=== PATIENT | male | born 2000 | race Caucasian/White ===

== ENCOUNTER 2022-01-22 23:20 | Emergency (ER) | payer BC, SELFPAY ==
[2022-01-22 23:21] VITALS: BP 157/89; PULSE 130; RESP 16; TEMP 36.8; O2SAT 100; BMI 33.6
--- NOTE | 2022-01-22 23:46 | US_ITS ---
STUDY: TESTICULAR/SCROTAL ULTRASOUND EXAMINATION OF 2354 HOURS ON 01/22/2022 REASON FOR EXAM: 21-year-old male with pain superior to the right testicle of 3 days'' duration. TECHNIQUE: Ultrasound evaluation of the scrotum was performed with color Doppler and static chong-scale imaging. COMPARISON: None. FINDINGS: RIGHT TESTICLE Right testicle measures 4.7 cm length by 3.1 cm in transverse diameter by 2.4 seconds AP diameter. It has a homogeneous appearance without evidence of cystic or solid mass lesions. There is normal arterial and venous blood flow. There is no evidence for right testicular torsion. Left testicle measures 4.7 cm in length by 3.1 cm in transverse diameter by 2.4 cm in AP diameter. The left testicle is homogeneous in appearance. There is evidence of left testicular cystic or solid mass lesions. There is normal left testicular arterial and venous blood flow. There is no evidence of a left testicular torsion. There is a moderate right hydrocele with some debris and a mild left hydrocele.. There is no evidence of varicoceles. The right epididymal head measures 1.1 cm x 0.6 cm x 0.4 cm. The right epididymal head is normal. There is no evidence of right epididymitis. The left epididymal head measures 1.1 cm x 7 mm x 7 mm. The left epididymal head is normal. There is no evidence of a left epididymitis. There is no demonstration of a hernia. US/Testicular with Arterial Flow IMPRESSION: 1. Normal bilateral testicles without evidence of cystic or solid mass lesions or torsion. No evidence of an orchitis. 2. Normal epididymal heads bilaterally. No findings of an epididymitis. 3. Moderate right hydrocele (with debris) and a mild left hydrocele. 4. No evidence of varicoceles. 5. No demonstration of hernias. Electronically Signed: Dariel Nicholson MD at 0:34 EDT ,
--- NOTE | 2022-01-22 23:46 | EX.ED.GUMALE ---
HPI History of Present Illness Chief Complaint: Male Pain/Injury Informant: patient Narrative Narrative: 21-year-old male presented to the emergency room with pain above his right testicle. Symptoms have been present for 2 days. He denies dysuria vomiting flank pain or abdominal pain. No direct trauma noted. He states that it feels mildly uncomfortable with certain positions and movement. He states that he has not noticed any swelling or erythema. No drainage from the testicle. He has not noticed any masses. PFSH PFSH Allergy/AdvReac Type Severity Reaction Status Date / Time No Known Allergies Allergy Verified 01/22/22 23:22 Social History (Updated 01/22/22 @ 23:[address] Nghia Trinidad, DO) current gender identity: male Smoking Status: Never smoker substance use type: does not use ROS ROS ED Constitutional Constitutional ED: Denies chills or weight loss Eyes Eyes: Denies change in vision or diplopia ENT ENT ED: Denies ear pain, rhinorrhea or sore throat Cardiovascular Cardiovascular: Denies chest pain, orthopnea, palpitations or racing heartbeat Respiratory/Chest Respiratory/Chest: Denies cough, dyspnea or orthopnea Gastrointestinal Gastrointestinal: Denies abdominal pain, diarrhea, nausea or vomiting Genitourinary Genitourinary ED: Reports other Details: Right scrotal pain ; Denies dysuria, hematuria or urinary frequency Musculoskeletal Musculoskeletal: Denies arthralgias or myalgias Integumentary Denies abscess or rash Neurologic Neurologic: Denies headache(s) or weakness Psychiatric Psychiatric: Denies anxiety, depression, suicidal ideation or suicidal thoughts Endocrine Endocrinology: Denies polydipsia, polyphagia or polyuria Allergic/Immunologic Allergic/Immunologic ED: Denies mouth swelling, tongue swelling or urticaria EXAM Physical Exam Const Vital Signs: 01/22/22 23:21 Temperature 98.3 F Temperature Source Temporal Pulse Rate 130 H Respiratory Rate 16 Blood Pressure 157/89 H Blood Pressure Mean 111 Pulse Ox 100 Oxygen Delivery Method Room Air Positive well nourished and well developed General Appearance ED: well developed HEENT Reports normocephalic, head/scalp atraumatic and moist mucous membranes Eyes PERRL and EOMs intact bilaterally Neck no lymphadenopathy, supple and no JVD Resp normal respiratory effort and clear to auscultation bilaterally Cardio regular rate, regular rhythm and no murmurs GI normal to inspection, nondistended, normoactive bowel sounds and non-tender Palpation: soft Narrative: Circumcised male. There is no hernia palpated. The testicle itself has a normal lay no swelling. No drainage from the meatus. Back/Spine no CVA tenderness and normal ROM Extremity normal to inspection General Extremety ED: Negative for edema General Extremity: Negative for edema Neuro oriented x3 and CN's II-XII intact bilaterally Sensorium / Orientation: alert Motor Exam: strength 5/5 throughout Psych mental status grossly normal Mood & Affect: Negative for depressed or tearful Skin no rashes or lesions noted and no wounds MDM MDM MDM Narrative Medical decision making narrative: Urinalysis is normal. Testicular ultrasound does not show any acute findings other than a moderate right hydrocele. Difficult to say if this is because of the patient's pain. I do not see anything emergent to explain his symptoms. Would recommend ice and anti-inflammatories. Return if worsening or concerns Lab Data Attestation: I reviewed the patient's lab results. Labs: Laboratory Results - last 24 hr 01/23/22 00:16 Urine Color Yellow Urine Clarity Clear Urine pH 6.5 Ur Specific [place] 1.010 Urine Protein Negative Urine Glucose (UA) Normal Urine Ketones Negative Urine Occult Blood Negative Urine Nitrite Negative Urine Bilirubin Negative Urine Urobilinogen Normal Ur Leukocyte Esterase Negative Urine RBC 0 SEEN Urine WBC 0 SEEN Ur Squamous Epith Cells 0 SEEN Urine Bacteria RARE Urine Mucus 0 SEEN Radiography Diagnostic Testing: Clinical Impression(s) from Imaging Studies Testicular Ultrasound 01/22/22 23:46 IMPRESSION: 1. Normal bilateral testicles without evidence of cystic or solid mass lesions or torsion. No evidence of an orchitis. 2. Normal epididymal heads bilaterally. No findings of an epididymitis. 3. Moderate right hydrocele (with debris) and a mild left hydrocele. 4. No evidence of varicoceles. 5. No demonstration of hernias. Electronically Signed: Dariel Nicholson MD at 0:34 EDT , Discharge Plan Triage Chief Complaint: Male Pain/Injury ED Provider: Nghia Trinidad Dx/Rx/DC Orders Clinical Impression: Acute pain in scrotum Instructions: ED Pain, Acute, Uncertain Cause Primary Care Provider: Care Physician,No Primary Referrals: Gildardo Choi MD [STAFF PHYSICIAN] - As Needed (for primary care ) NOT,DEFINED [NON-STAFF] - Disposition Disposition: Home, Self Care
[2022-01-23 00:27] LABS: Color, Urine Yellow (Yellow); Glucose, Dipstick Normal (Normal); Ketone-Dipstick Negative (Negative); Leukocyte Esterase-Dipstick Negative /ul (Negative); Nitrite-Dipstick Negative (Negative); Occult Blood-Urine Negative /ul (Negative); Protein-Dipstick Negative (Negative); Urine Bilirubin Dipstick Negative (Negative); Urine Clarity Clear (Clear); Urine Urobilinogen Normal (Normal); Urine pH 6.5 (5.0 - 8.0)
[2022-01-23 00:28] LABS: Mucous, Urine 0 SEEN /hpf (<or=2+); Red Blood Cells-Urine 0 SEEN /hpf (0-5); Squamous Epithelial Cells - UA 0 SEEN /hpf (0-5); White Blood Cells 0 SEEN /hpf (0-5)
[2022-01-23 00:39] LABS: Bacteria RARE /hpf (None Seen)
== END 2022-01-23 00:50 | disposition home or self-care (01) ==
PROVIDERS: Emergency Provider Emergency Medicine; Visit Provider Emergency Medicine
DX: N50.82 Scrotal pain (principal); N43.3 Hydrocele, unspecified
CPT/HCPCS: 76870; 81001; 93976; 99282

== ENCOUNTER 2023-01-07 16:59 | Emergency (ER) | payer BC, SELFPAY ==
[2023-01-07 17:01] VITALS: BP 145/90; PULSE 137; RESP 20; TEMP 36.1; O2SAT 98; BMI 35.9
--- NOTE | 2023-01-07 17:08 | EKG12_ITS ---
Test Reason : CP Blood Pressure : / mmHG Vent. Rate : 139 BPM Atrial Rate : 139 BPM P-R Int : 134 ms QRS Dur : 096 ms QT Int : 278 ms P-R-T Axes : 048 034 030 degrees QTc Int : 423 ms Sinus tachycardia Otherwise normal ECG Confirmed by MATHEW DURAN, HOLLIE ([id number]), index editor CANDIE AVENDANO ([id number]) on 01/09/2023 10:14:58 A M Referred By: Confirmed By:MICHELE CARMONA MD
--- NOTE | 2023-01-07 17:20 | ED.VIS.CHEST ---
HPI History of Present Illness Chief Complaint: Chest Pain Detail of Chief Complaint: Chest pain Informant: patient and parent Narrative Narrative: Patient presents with chest pain that started around 10:30 AM when he woke up this morning. States he had some mild discomfort in his left chest that was worse with breathing. Patient then got up and felt lightheaded and nauseated. He had discomfort throughout the day. Also noticed intermittently some discomfort in his arm and that made him think that he might be having a heart attack. Then patient started freaking out and presents for evaluation. Patient has no history of PE or DVT. No significant family history of heart disease. Denies recent illness of cough. He has had a slight sore throat that started last week. [facility] Medical History (Updated 01/07/23 @ 18:[address] Esteban Cardenas DO) Anxiety Home Medications NK 01/07/23 [History Last Taken Unknown] Allergy/AdvReac Type Severity Reaction Status Date / Time No Known Allergies Allergy Verified 01/07/23 17:01 Social History (Updated 01/22/22 @ 23:[address] Nghia Trinidad DO) Smoking Status: Never smoker substance use type: does not use ROS ROS ED Review of Systems ROS Unobtainable: other Constitutional Constitutional ED: Reports lethargy; Denies chills, fever(s), sweats or weight loss Eyes Eyes: Denies blurry vision, change in vision or diplopia ENT ENT ED: Denies rhinorrhea or sore throat Cardiovascular Cardiovascular: Reports chest pain and racing heartbeat; Denies orthopnea Respiratory/Chest Respiratory/Chest: Reports dyspnea; Denies cough, dyspnea on exertion, orthopnea or sputum Gastrointestinal Gastrointestinal: Denies abdominal pain, diarrhea, nausea or vomiting Genitourinary Genitourinary ED: Denies dysuria, hematuria or urinary frequency Musculoskeletal Musculoskeletal: Denies arthralgias, back pain, myalgias or neck pain Integumentary Denies abscess, Abrasions or rash Neurologic Neurologic: Denies headache(s) or weakness Psychiatric Psychiatric: Denies anxiety, depression or suicidal thoughts Endocrine Endocrinology: Denies polydipsia, polyphagia or polyuria Hematologic/Lymphatic Hematologic/Lymphatic: Denies easy bleeding, easy bruising or lymphadenopathy Allergic/Immunologic Allergic/Immunologic ED: Denies mouth swelling, tongue swelling or urticaria EXAM Physical Exam Const Vital Signs: 01/07/23 17:01 01/07/23 17:12 Temperature 97 F L Temperature Source Temporal Pulse Rate 137 H Respiratory Rate 20 H Respiratory Effort Short of Breath Blood Pressure 145/90 H Blood Pressure Mean 108 Pulse Ox 98 Oxygen Delivery Method Room Air Positive well nourished and well developed General Appearance ED: well developed and NAD HEENT Reports TM's clear and moist mucous membranes normocephalic and atraumatic; Negative for trauma or tenderness Tympanic Membrane ED: Yes TM's clear Eyes PERRL and EOMs intact bilaterally General Eye ED: Negative for pale conjunctiva or scleral icterus Neck no lymphadenopathy, supple and no JVD General: Negative for tenderness Chest Wall inspection of chest normal and palpation of chest normal Chest: Negative for tenderness Resp normal respiratory effort and clear to auscultation bilaterally Effort and Inspection: Negative for respiratory distress or pain with movement Auscultation: Negative for rhonchi, wheezes or diminished lung sounds Cardio regular rate, regular rhythm, S1 normal heart sound, S2 normal heart sound and no murmurs Rate: tachycardic Peripheral Pulses: pulses 2+ throughout GI normal to inspection, nondistended, normoactive bowel sounds, soft to palpation, non-tender, non-distended and no masses Back/Spine no CVA tenderness and no thoracic nor lumbar tenderness Extremity normal to inspection General Extremety ED: Negative for edema General Extremity: Negative for edema Neuro oriented x3, CN's II-XII intact bilaterally, no sensory deficits noted and gait normal Sensorium / Orientation: awake, alert, oriented to person, oriented to place and oriented to time Motor Exam: strength 5/5 throughout and strength abnormal Psych mental status grossly normal Skin no rashes or lesions noted and no wounds MDM MDM MDM Narrative Medical decision making narrative: Patient presents with chest pain that started this morning. Clinically really no significant risk factors for heart disease. He does present tachycardic. No diagnosed history of anxiety. In the differential would be pneumothorax versus PE versus pericarditis versus pleurisy versus anxiety. Patient had an EKG obtained arrival showed a sinus tachycardia with a ventricular rate of 139 bpm with no acute ST segment changes. CBC with differential was normal. Chemistries unremarkable. Troponin was less than 3. D-dimer was less than 0.27. Chest x-ray was normal. Patient's heart rate improved into the low 100s at rest. He did not want anything for anxiety. This point I feel he can be safely discharged to home. I do not feel he is having acute coronary syndrome. I do not feel he is having evidence of pericarditis. PEs have been ruled out. Lab Data Attestation: I reviewed the patient's lab results. Labs: Laboratory Results - last 24 hr 01/07/23 01/07/23 01/07/23 17:34 17:34 17:34 WBC 6.0 RBC 5.40 Hgb 17.0 H Hct 49.1 MCV 90.9 MCH 31.5 MCHC 34.6 RDW Std Deviation 40.3 RDW Coeff of [place]ur 12.1 Plt Count 316 MPV 10.7 Immature Gran % (Auto) 0.200 Neut % (Auto) 68.7 Lymph % (Auto) 22.7 [place] % (Auto) 5.5 Eos % (Auto) 2.2 Baso % (Auto) 0.7 Absolute Neuts (auto) 4.1 Absolute Lymphs (auto) 1.36 Nucleated RBC % 0 D-Dimer Quant (PE/DVT) < 0.27 L Sodium 139 Potassium 3.7 Chloride 107 Carbon Dioxide 26.0 Anion Gap 6 BUN 6 L Creatinine 0.91 Estim Creat Clear Calc 118.04 Est GFR (MDRD) Af Amer 132 Est GFR (MDRD) Non-Af 109 BUN/Creatinine Ratio 6.6 L Glucose 111 H Calcium 9.4 Troponin I High Sens < 3 L Radiography Chest X-Ray - ED: 1 View Diagnostic Testing: Clinical Impression(s) from Imaging Studies Chest X-Ray 01/07/23 17:38 IMPRESSION: Normal x-ray examination of the chest. Electronically Signed: Brennan Huston MD at 17:50 EDT , 1 view chest x-ray obtained interpreted by myself no evidence of infiltrate or pneumothorax or acute disease process. Radiology in agreement. EKG Initial EKG: Attestation: I personally reviewed and interpreted this EKG as follows: Comments: Sinus rhythm with a rate of 139 bpm with no acute ST segment changes Discharge Plan Triage Chief Complaint: Chest Pain ED Provider: Esteban Cardenas Dx/Rx/DC Orders Clinical Impression: Chest pain, Tachycardia, Anxiety Instructions: ED Anxiety Reaction, ED Chest Pain, Uncertain Cause Prescriptions: No Action NK Primary Care Provider: Care Physician,No Primary Referrals: Care Physician,No Primary [Primary Care Provider] - Disposition Disposition: Home, Self Care
--- NOTE | 2023-01-07 17:21 | NURSING ---
NO OLD EKGS
[2023-01-07] MEDS: 0.9% Normal Saline 1,000 ML 150 ML IV (17:37)
--- NOTE | 2023-01-07 17:38 | RAD_ITS ---
STUDY: X-RAY CHEST REASON FOR EXAM: Male, 22 years old. chest pain TECHNIQUE: Single frontal view of the chest. COMPARISON: None. FINDINGS: The lungs are clear and expanded. There is no demonstrated pleural abnormality. Normal size heart. Normal mediastinum and brittaney. Normal visualized pulmonary arteries. Normal visualized aortic arch and descending thoracic aorta. Normal visualized thoracic spine. Normal visualized ribs, clavicles, and shoulders. There is no demonstrated abnormality of the visualized soft tissue structures of the upper abdomen. RAD/Chest 1 View (Portable) IMPRESSION: Normal x-ray examination of the chest. Electronically Signed: Brennan Huston MD at 17:50 EDT ,
[2023-01-07 17:46] LABS: Absolute Lymphocyte Count 1.36 X10^3/uL (0.83-4.51); Absolute Neutrophil Count 4.1 X10^3/uL (2.0-7.7); Basophil# 0.04 X10^3/uL; Basophil% 0.7 % (0-1); Eosinophil# 0.13 X10^3/uL; Eosinophils% 2.2 % (0-5); Hematocrit 49.1 % (40-54); Lymphocyte # 1.36 X10^3/ul (0.83-4.51); Lymphocyte % 22.7 % (19-41); Mean Corp Hgb Conc 34.6 g/dL (32-36); Mean Corpuscular Hgb 31.5 pg (27.0-32.0); Mean Corpuscular Volume 90.9 fL (80-94); Mean Platelet Vol. 10.7 fl (6.2-12.0); Monocyte# 0.33 X10^3/uL; Monocyte% 5.5 % (0-10); NRBC Flagged by Analyzer 0 % (0-5); Neutrophil # 4.12 X10^3/uL (2.7-7.7); Neutrophil % 68.7 % (47-70); Platelet Count 316 K/mm3 (150-450); RBC Distribution Width CV 12.1 % (11.6-14.6); RBC Distribution Width SD 40.3 fl (35.1-43.9)
[2023-01-07 18:06] LABS: Anion Gap 6 (5-15); BUN 6 mg/dL (7-18); BUN/Creat Ratio 6.6 RATIO (10-20); Calcium,Total 9.4 mg/dL (8.5-10.1); Chloride 107 mmol/L (98-107); Creatinine, Serum 0.91 mg/dL (0.70-1.30); EST Glomerular Filtration Rate 109 mL/min (>60); Est Glom Filt Rate - Afr Amer 132 mL/min (>60); Estimated Creatinine Clearance 118.04 ml/min; Glucose 111 mg/dL (74-106); Potassium 3.7 mmol/L (3.5-5.1); Sodium Level 139 mmol/L (136-145); Troponin-I HS < 3 pg/mL (3.0-78.0)
[2023-01-07 18:26] LABS: D-Dimer Quantitative (DVT/PE) < 0.27 FEU/ug/m (0.27-0.49)
[2023-01-07 18:41] VITALS: BP 124/66; PULSE 71; RESP 15; O2SAT 99
== END 2023-01-07 18:42 | disposition home or self-care (01) ==
PROVIDERS: Emergency Provider Emergency Medicine; Visit Provider Emergency Medicine
DX: R07.9 Chest pain, unspecified (principal); F41.9 Anxiety disorder, unspecified; J02.9 Acute pharyngitis, unspecified; R06.00 Dyspnea, unspecified; R00.0 Tachycardia, unspecified
CPT/HCPCS: 71045; 80048; 84484; 85025; 85379; 93005; 96360; 99283; J7030; A4216

== ENCOUNTER 2023-06-15 11:16 | Emergency (ER) | payer OTHER, SELFPAY ==
[2023-06-15 11:17] VITALS: BP 169/93; PULSE 122; RESP 14; TEMP 36.2; O2SAT 98; BMI 35.3
--- NOTE | 2023-06-15 11:41 | EKG12_ITS ---
Test Reason : CP Blood Pressure : / mmHG Vent. Rate : 085 BPM Atrial Rate : 085 BPM P-R Int : 124 ms QRS Dur : 100 ms QT Int : 346 ms P-R-T Axes : 023 016 034 degrees QTc Int : 411 ms Sinus rhythm with marked sinus arrhythmia Otherwise normal ECG Confirmed by ANTWON DURAN, KENDY ([id number]), video effects editor CANDIE AVENDANO ([id number]) on 06/17/2023 12:46:29 PM Referred By: Confirmed By:KENDY KAPOOR MD
--- NOTE | 2023-06-15 11:43 | EX.ED.DYSGE1 ---
HPI <RUEL Jacobs - Last Filed: 06/15/23 13:03> History of Present Illness Chief Complaint: Chest Pain Narrative Narrative: Patient is a 22-year-old male with no significant ankle history, who presents to the emergency department for chest pain that radiates to the left arm. Patient states he has had instances like this in the past, he was seen here in December 2022 for the same. Patient denies any history of DVT/PE. Patient [place] any recent travel, denies any family history of heart disease. Patient states that this pain started last evening around 11:30 PM, he woke up with it this morning and he is here for evaluation. Patient dates he does feel anxious, and is here for evaluation. <Dr. Dejuan Burris DO - Last Filed: 06/15/23 16:20> Narrative Narrative: Patient is a 22-year-old male with no significant medical history, who presents to the emergency department for chest pain that radiates to the left arm. This began last night. Patient states he has had instances like this in the past, he was seen here in December 2022 for the same. Patient denies any history of DVT/PE. Patient [place] any recent travel, denies any family history of heart disease. Patient states that this pain started last evening around 11:30 PM, he woke up with it this morning and he is here for evaluation. Patient dates he does feel anxious, and is here for evaluation. PFSH <RUEL Jacobs - Last Filed: 06/15/23 13:03> PFS Medical History (Updated 06/15/23 @ 13:03 by RUEL Jacobs) Anxiety Home Medications NK 01/07/23 [History Last Taken Unknown] Allergy/AdvReac Type Severity Reaction Status Date / Time No Known Allergies Allergy Verified 06/15/23 11:17 Social History (Updated 01/22/22 @ 23:[address] Nghia Trinidad DO) Smoking Status: Never smoker substance use type: does not use ROS <RUEL Jacobs - Last Filed: 06/15/23 13:03> ROS ED ROS Narrative Constitutional: Negative for fever, chills, weight loss, weakness Eyes: Negative for vision loss, vision change, double vision ENT: Negative for any sore throat, ear pain, congestion Cardiovascular: Negative for any tightness, palpitations. Positive For chest pain that raise the left arm Respiratory: Negative for any cough, sputum production, hemoptysis, dyspnea, dyspnea on exertion, orthopnea Gastrointestinal: Negative for any abdominal pain, nausea, vomiting, diarrhea, constipation, blood in stool, blood in vomit : Negative for any urinary frequency, dysuria, retention, blood in urine Muscle skeletal: Negative for any myalgias, arthralgias, neck pain, back pain Neurological: Negative for any headache, syncope, numbness or tingling, dizziness Skin: Negative for any rashes, lumps, itching, abrasions, lacerations Psychiatric: Negative for any depression, anxiety, stress, suicidal ideation, homicidal ideation Hematologic: Negative for any easy bruising, excessive bruising, easy bleeding Allergies: Negative for any eczema, hives, rash EXAM <RUEL Jacobs - Last Filed: 06/15/23 13:03> Physical Exam Narrative Exam Narrative: Vital signs reviewed. HEET: Head normocephalic atraumatic, TMs clear bilaterally. Posterior pharynx is clear, moist mucous membranes. Nares clear bilaterally. Neck: Supple with no lymphadenopathy or tenderness. No signs of meningismus. Cardiac: Tachycardic rate, no murmurs gallops or rubs, equal peripheral pulses bilaterally. Respiratory: Lungs clear to auscultation bilaterally. No chest tenderness. Abdomen: Soft, nontender, nondistended. No abdominal bruit or pulsatile masses. No hepatosplenomegaly Extremities: No peripheral edema, no signs of gross trauma or deformity. Active full range of motion of all extremities. Neuro: Cranial nerves II through XII intact, no focal neurological deficits. Skin: Clean dry and intact with no rash, purpura, petechiae, vesicles or pustules. Backs/flank: No CVA tenderness, no midline spinal tenderness, no deformity. Psych: Normal mood and affect. No SI, HI or acute psychosis. Const Vital Signs: 06/15/23 11:17 06/15/23 11:42 06/15/23 11:46 Temperature 97.2 F L Temperature Source Temporal Pulse Rate 122 H Respiratory Rate 14 Respiratory Effort Normal Non-Labored Blood Pressure 169/93 H Blood Pressure Mean 118 Pulse Ox 98 Oxygen Delivery Method Room Air Room Air 06/15/23 13:08 Temperature Temperature Source Pulse Rate 68 Respiratory Rate Respiratory Effort Blood Pressure 116/89 H Blood Pressure Mean 98 Pulse Ox 99 Oxygen Delivery Method <Dr. Dejuan Burris DO - Last Filed: 06/15/23 16:20> Physical Exam Const Vital Signs: 06/15/23 11:17 06/15/23 11:42 06/15/23 11:46 Temperature 97.2 F L Temperature Source Temporal Pulse Rate 122 H Respiratory Rate 14 Respiratory Effort Normal Non-Labored Blood Pressure 169/93 H Blood Pressure Mean 118 Pulse Ox 98 Oxygen Delivery Method Room Air Room Air 06/15/23 13:08 Temperature Temperature Source Pulse Rate 68 Respiratory Rate Respiratory Effort Blood Pressure 116/89 H Blood Pressure Mean 98 Pulse Ox 99 Oxygen Delivery Method MDM <RUEL Jacobs - Last Filed: 06/15/23 13:03> MDM Lab Data Labs: Laboratory Results - last 24 hr 06/15/23 11:50 WBC 6.5 RBC 5.73 Hgb 17.6 H Hct 52.4 MCV 91.4 MCH 30.7 MCHC 33.6 RDW Std Deviation 40.9 RDW Coeff of Mayur 12.2 Plt Count 304 MPV 11.1 Immature Gran % (Auto) 0.600 Neut % (Auto) 67.3 Lymph % (Auto) 23.6 Hidalgo % (Auto) 5.2 Eos % (Auto) 2.5 Baso % (Auto) 0.8 Absolute Neuts (auto) 4.4 Absolute Lymphs (auto) 1.54 Nucleated RBC % 0 Sodium 139 Potassium 3.9 Chloride 106 Carbon Dioxide 27.0 Anion Gap 6 BUN 8 Creatinine 0.91 Estim Creat Clear Calc 118.04 Est GFR (MDRD) Af Amer 132 Est GFR (MDRD) Non-Af 109 BUN/Creatinine Ratio 8.8 L Glucose 98 Calcium 9.2 Troponin I High Sens 4 TSH 1.70 Radiography Diagnostic Testing: Clinical Impression(s) from Imaging Studies Chest X-Ray 06/15/23 12:10 IMPRESSION: Normal x-ray examination of the chest. Electronically Signed: Adan Nixon MD at 12:26 EST , EKG EKG shows sinus rhythm : Attestation: I personally reviewed and interpreted this EKG as follows: Comments: EKG shows a sinus rhythm with a rate of 85 bpm, IA interval 124 ms, QRS duration 100 ms, no acute ST elevation, no acute infarct noted. Treatment and Re-Evaluation :: Patient is in no obvious distress vital signs are stable, patient is stable, patient is in no distress, no evidence of any sepsis. Patient presents to the emergency department left-sided chest pain. Patient received a chest pain work-up. Differential diagnosis includes anxiety, cardiac arrhythmia. Patient remained stable, patient is in no distress. Vital signs remained stable. Patient's chest x-ray showed a normal examination the chest, this was interpreted by the ER physician. Patient's laboratory values showed normal CBC, patient's chemistries were unremarkable, troponin was negative, TSH was 1.7 which is within normal limits. Patient given IV fluids, IV Toradol, on reevaluation, the patient was feeling better. I do believe that there is an anxiety component. There is no evidence of any ACS, ME. At this time, I believe the patient is stable for discharge. He will follow-up closely with his PCP. All questions answered, patient given return precautions. Stable for discharge. <Dr. Dejuan Burris, DO - Last Filed: 06/15/23 16:20> [facility] Narrative Medical decision making narrative: ED attending note: I evaluated the patient in conjunction with the TERRIE. I agree with his/her statements and above findings. I have personally performed a face to face assessment of the patient and have reviewed the TERRIE Note. I performed a substantive portion of the visit including all aspects of the following. I personally saw the patient performed chart review, physical exam, reviewed labs, imaging (if obtained), and formulated a treatment and management plan. Brief history: 22-year-old male here with chest pain. The patient denies recent surgery in the last 4 weeks or immobilization in the last 3 days, denies previous diagnosis of DVT or PE, hemoptysis, unilateral leg swelling or malignancy with treatment the last 6 months or palliative. No estrogen use noted. Patient denies sudden onset of pain, no tearing sensation, no migratory symptoms, no new numbness, weakness or loss of sensation. Patient denies family history or personal history of Connective tissue disorders (Marfan's Syndrome, Lillian Danlos etc) Exam: Nursing triage notes reviewed, Vital signs reviewed Constitutional: please see mdm HENT: MMM Eyes: Pupils equal round and reactive to light, Extraocular muscles intact Neck: No stridor, no JVD, full neck ROM Lungs: Clear to auscultation, No wheezing or rales. No increased work of breathing, no conversational dyspnea, no accessory muscle use, no nasal flaring. No respiratory distress noted Heart: Regular rate and rhythm, No murmurs, No rubs and No gallops, 2+ distal pulses (radial, femoral, posterior tibial) in all extremities Abdomen: Soft, there is no tenderness, rigidity, rebound or guarding, no obvious peritoneal signs, no palpable pulsatile abdominal masses, no auscultated abdominal bruit : No CVAT Extremities: No edema Neuro: No focal neurological deficits, cranial nerves II through XII intact, 5/5 strength in all extremities. Intact sensation to light touch in all extremities, 2+ reflexes bilateral patella dens. Normal gait. No ataxia. Skin: No rash or lesions noted MDM/plan: Chief Complaint: Chest pain External records reviewed: Similar presentation in December 2022 Factors affecting care: None Social determinants of health: Denies cocaine or methamphetamine abuse History obtained from others: None Consults: None at this time [facility] narrative: Patient was initially tachycardic which resolved without intervention, he was afebrile he is nontoxic. No focal cardiopulmonary abnormalities noted. I considered the following differential diagnosis: ACS, PE, thyroid dysfunction, anemia, electrolyte disturbance, pneumonia I have personally reviewed the patient's chest x-ray. Chest x-ray is unremarkable for pulmonary edema, pneumothorax, pneumonia or focal cardiopulmonary abnormality. Shared decision making: I will have a discussion with the patient and or visitors regarding risk/benefits of further testing or admission. They will be made aware of of the risk/benefits inherent in this decision they will be given the opportunity to voice understanding. Lab Data Labs: Laboratory Results - last 24 hr 06/15/23 11:50 WBC 6.5 RBC 5.73 Hgb 17.6 H Hct 52.4 MCV 91.4 MCH 30.7 MCHC 33.6 RDW Std Deviation 40.9 RDW Coeff of Mayur 12.2 Plt Count 304 MPV 11.1 Immature Gran % (Auto) 0.600 Neut % (Auto) 67.3 Lymph % (Auto) 23.6 Hidalgo % (Auto) 5.2 Eos % (Auto) 2.5 Baso % (Auto) 0.8 Absolute Neuts (auto) 4.4 Absolute Lymphs (auto) 1.54 Nucleated RBC % 0 Sodium 139 Potassium 3.9 Chloride 106 Carbon Dioxide 27.0 Anion Gap 6 BUN 8 Creatinine 0.91 Estim Creat Clear Calc 118.04 Est GFR (MDRD) Af Amer 132 Est GFR (MDRD) Non-Af 109 BUN/Creatinine Ratio 8.8 L Glucose 98 Calcium 9.2 Troponin I High Sens 4 TSH 1.70 Radiography Diagnostic Testing: Clinical Impression(s) from Imaging Studies Chest X-Ray 06/15/23 12:10 IMPRESSION: Normal x-ray examination of the chest. Electronically Signed: Adan Nixon MD at 12:26 EST Reading Location ID and State: [facility] / [place] , Service support , Discharge Plan Triage Chief Complaint: Chest Pain ED Midlevel Provider: Chano Mcgarry ED Provider: Dejuan Burris Dx/Rx/DC Orders Clinical Impression: Anxiety, Chest pain Instructions: ED Anxiety Reaction, ED Chest Pain, Uncertain Cause Prescriptions: No Action NK Primary Care Provider: Redd Dugan Referrals: Care Physician,No Primary [Non-Staff] - Activity Restrictions/Additional Instructions: You had a negative chest pain work-up today Disposition Disposition: Home, Self Care Discharge Date/Time: 06/15/23 13:12
[2023-06-15] MEDS: 0.9% Normal Saline (1000mL) 1,000 ML 1000 ML IV (11:57)
[2023-06-15] MEDS: Ketorolac 15 MG/ML Vial IV (11:58)
[2023-06-15 12:09] LABS: Absolute Lymphocyte Count 1.54 X10^3/uL (0.83-4.51); Absolute Neutrophil Count 4.4 X10^3/uL (2.0-7.7); Basophil# 0.05 X10^3/uL; Basophil% 0.8 % (0-1); Eosinophil# 0.16 X10^3/uL; Eosinophils% 2.5 % (0-5); Hematocrit 52.4 % (40-54); Hemoglobin 17.6 g/dL (13.0-16.5); Lymphocyte # 1.54 X10^3/ul (0.83-4.51); Lymphocyte % 23.6 % (19-41); Mean Corp Hgb Conc 33.6 g/dL (32-36); Mean Corpuscular Hgb 30.7 pg (27.0-32.0); Mean Corpuscular Volume 91.4 fL (80-94); Mean Platelet Vol. 11.1 fl (6.2-12.0); Monocyte# 0.34 X10^3/uL; Monocyte% 5.2 % (0-10); NRBC Flagged by Analyzer 0 % (0-5); Neutrophil # 4.39 X10^3/uL (2.7-7.7); Neutrophil % 67.3 % (47-70); Platelet Count 304 K/mm3 (150-450); RBC Distribution Width CV 12.2 % (11.6-14.6); RBC Distribution Width SD 40.9 fl (35.1-43.9); Red Blood Count 5.73 M/mm3 (4.6-6.2); White Blood Count 6.5 K/mm3 (4.4-11.0)
--- NOTE | 2023-06-15 12:10 | RAD_ITS ---
STUDY: X-RAY CHEST REASON FOR EXAM: Male, 22 years old. Substernal chest pain TECHNIQUE: PA and lateral views of the chest. COMPARISON: 01/07/2023 FINDINGS: EKG leads overlie the chest The lungs are clear and expanded. There is no demonstrated pleural abnormality. Normal size heart. Normal mediastinum and brittaney. Normal visualized pulmonary arteries. Normal visualized aortic arch and descending thoracic aorta. Normal visualized thoracic spine. Normal visualized ribs, clavicles, and shoulders. There is no demonstrated abnormality of the visualized soft tissue structures of the upper abdomen. RAD/Chest PA and Lateral IMPRESSION: Normal x-ray examination of the chest. Electronically Signed: Adan Nixon MD at 12:26 [facility] ,
[2023-06-15 12:26] LABS: Anion Gap 6 (5-15); BUN 8 mg/dL (7-18); BUN/Creat Ratio 8.8 RATIO (10-20); Calcium,Total 9.2 mg/dL (8.5-10.1); Chloride 106 mmol/L (98-107); Creatinine, Serum 0.91 mg/dL (0.70-1.30); EST Glomerular Filtration Rate 109 mL/min (>60); Est Glom Filt Rate - Afr Amer 132 mL/min (>60); Estimated Creatinine Clearance 118.04 ml/min; Glucose 98 mg/dL (74-106); Potassium 3.9 mmol/L (3.5-5.1); Sodium Level 139 mmol/L (136-145); Troponin-I HS 4 pg/mL (3.0-78.0)
[2023-06-15 13:08] VITALS: BP 116/89; PULSE 68; O2SAT 99
== END 2023-06-15 13:12 | disposition home or self-care (01) ==
PROVIDERS: Nurse Practitioner; Emergency Provider Emergency Medicine; PCP Internal Medicine; Visit Provider Emergency Medicine
DX: R07.9 Chest pain, unspecified (principal); F41.9 Anxiety disorder, unspecified
CPT/HCPCS: 71046; 80048; 84443; 84484; 85025; 93005; 96361; 96374; 99284; J7030; A4216